=== PATIENT | female | born 1965 | race Caucasian/White ===

== ENCOUNTER 2017-04-11 15:17 | Emergency (ER) | payer OTHER ==
[~2017-04-11] VITALS: Ht 160 cm; Wt 110.3 kg
[2017-04-11 17:37] LABS: HEMATOCRIT 42.6 % (36.0-46.0); MCH 29.4 PG (29.0-34.0); MCHC 32.6 G/DL (30.0-36.0); MCV 90.3 FL (83-99); MEAN PLAT.VOLUME 10.3 uM^3 (9.5-12.4); PLATELET COUNT 338 K/uL (156-360); RBC DIS.WIDTH-CV 13.2 % (11.8-14.6); RBC DIS.WIDTH-SD 43.4 % (39-53); RED BLOOD COUNT 4.72 M/uL (3.80-5.20); WHITE BLOOD COUNT 7.2 K/uL (4.1-10.2)
[2017-04-11 17:45] LABS: CHLORIDE 108 mEq/L (99-109); POTASSIUM 4.3 mEq/L (3.7-5.4); SODIUM 142 mEq/L (136-147)
[2017-04-11 17:47] LABS: GLUCOSE 100 mg/dL (70-99)
[2017-04-11 17:48] LABS: ANION GAP 10 MEQ/L (2-14)
[2017-04-11 17:51] LABS: UREA NITROGEN (BUN) 11 mg/dL (9-23)
[2017-04-11 17:52] LABS: GFR ESTIMATE (CALCULATED) 56 mL/min/
[2017-04-11 17:57] LABS: TROP-I INTERPRETATION NEGATIVE; TROPONIN-I < 0.01 ng/mL (0.0-0.30)
[2017-04-11] MEDS ORDERED: TIZANIDINE HCL4 M1 PO (17:58)
[2017-04-11] MEDS ORDERED: CYCLOBENZAPRINE10 MG PO (17:58)
[2017-04-11] MEDS ORDERED: GABAPENTIN600 MG PO (18:00)
[2017-04-11] MEDS ORDERED: HYDROCODON-ACE1 EAC9 PO (18:01)
[2017-04-11] MEDS ORDERED: ARYMO ER15 MG PO (18:02)
[2017-04-11] MEDS ORDERED: PIROXICAM20 MG PO (18:02)
[2017-04-11] MEDS ORDERED: DULERA 100 MCG/13 GM IH (18:03)
[2017-04-11] MEDS ORDERED: PRILOSEC20 MG PO (18:04)
[2017-04-11] MEDS ORDERED: MONTELUKAST SOD10 MG PO (18:04)
[2017-04-11] MEDS ORDERED: MEVACOR20 MG PO (18:05)
[2017-04-11] MEDS ORDERED: VENTOLIN HFA18 GM IH (18:05)
[2017-04-11] MEDS ORDERED: NAPROXEN CR500 MG PO (18:06)
[2017-04-11] MEDS ORDERED: SYNTHROID75 MCG PO (18:06)
[2017-04-11] MEDS ORDERED: CLONAZEPAM1 MG PO (18:07)
[2017-04-11] MEDS ORDERED: ELAVIL50 MG PO (18:07)
[2017-04-11] MEDS ORDERED: ATORVASTATIN CA40 MG PO (18:08)
[2017-04-11] MEDS ORDERED: VERAPAMIL HCL40 MG PO (18:08)
[2017-04-11] MEDS ORDERED: LEXAPRO10 MG PO (18:09)
[2017-04-11 20:31] VITALS: BP 119/79
== END 2017-04-11 19:11 | disposition home or self-care (01) ==
LOC: EME 15:17 → EDBD 15:17 → EME 19:11
PROVIDERS: Emergency Medicine
DX: I47.1 Supraventricular tachycardia (principal)
CPT/HCPCS: 80048; 84484; 85027; 93005; 99281; 99285; J7030